=== PATIENT | male | born 1980 | race Caucasian/White ===

== ENCOUNTER 2019-07-05 19:05 | Emergency (ER) | payer OTHER, SELFPAY ==
--- NOTE | 2019-07-05 19:00 | DI.RAD_ITS ---
EXAM: XR ANKLE RT COMPLETE CLINICAL HISTORY: Laceration posterior leg, R/O foreign body TECHNIQUE: COMPARISON: No exams were available for comparison FINDINGS: Three views were obtained. The ankle mortise is well maintained. No bony abnormality seen. No fore ign body identified. IMPRESSION:
[2019-07-05 19:11] VITALS: BP 157/92; PULSE 77; RESP 16; TEMP 36.6; O2SAT 98
--- NOTE | 2019-07-05 19:17 | ED.GENADUL_ITS ---
Discharge Plan Disposition Patient Disposition: HOME Condition: Stable Discharge Details Chief Complaint: Laceration Clinical Impression: Laceration of leg, right ED Provider: Narcisa Harris Discharge Instructions Instructions: Laceration (ED) Additional Instructions: After 12 to 24 hours you may wash wound under running soap and water. No soaking. Only apply bacitracin for the first day or 2. Allow to air dry. Keep clean and dry return for any signs of infection, swelling, red streaks pus or drainage. Increased pain or any concerns. Have sutures removed in 7 to 10 days. You are given a tetanus vaccine at this visit. The anesthesia will wear off in 1 to 2 hours you may take Tylenol or ibuprofen at that time. Medical Decision Making 38-year-old male presents with a right lower extremity laceration. This occurred approximately 30 minutes prior to arrival. Patient states that he was taking out the trash something hit the back of his leg and he noticed a laceration unsure of what object caused the injury. He does have a proximately 5 cm horizontal linear laceration noted with bleeding controlled. He does have full range of motion of his ankle. He is unsure of his tetanus vaccine status. He rates his pain mild to moderate. X-ray of ankle obtained to rule out foreign body. Was within normal limits no metallic or other radiopaque foreign bodies detected. IMPRESSION: Suspected soft tissue injury seen along the posterior margin of the right calf with no metallic or other radiopaque foreign bodies detected within the soft tissues. Laceration repaired as noted in procedure note above. Irrigated with sterile normal saline and 2% chlorhexidine. Anesthesia achieved with lidocaine 1% with epi patient tolerated well. Laceration repaired with number seven 3.0 Prolene simple interrupted sutures. Wound was somewhat approximated. There was some tension noted to the wound so wound edges were not completely brought together. Instructed on home care and to return in 7 to 10 days discussed red flags such as signs of infection or red streaks. Verbalized understanding. Patient was placed on the case management list to establish primary care provider. He was given a tetanus injection at this visit. This text was generated using [employer] system, please disregard any oddities of phrase or misspellings. HPI General Mode of arrival: ambulatory . Date/Time Provider Initiated Documentation: 07/05/19 19:07 . Limitations to Documentation: no limitations . Information obtained by: patient . HPI Narrative: 38-year-old male presents with a right lower extremity laceration. This occurred approximately 30 minutes prior to arrival. Patient states that he was taking out the trash something hit the back of his leg and he noticed a laceration unsure of what object caused the injury. He does have a proximately 5 cm horizontal linear laceration noted with bleeding controlled. He does have full range of motion of his ankle. He is unsure of his tetanus vaccine status. He rates his pain mild to moderate. Review of Systems Narrative: Constitutional: Negative for weight loss, alert and oriented, well groomed, normal body habitus, appears comfortable. Chest: Denies chest pain, palpitations, irregular rhythm, hypertension. Respiratory: Denies Shortness of breath, cough, hemoptysis. GI: Denies abdominal pain, nausea, vomiting, diarrhea, constipation. Integumentary/Breasts Skin/Breast: Reports wounds (Laceration) [facility] Social History Smoking/Tobacco Use Status: Never Drug use: Never Do you feel safe at home: Yes Do you feel safe in your relationship?: Yes Exam Narrative Exam Narrative: Constitutional: Alert and oriented x3. Appears stated age. Normal body habitus. Head: Normocephalic, no trauma. Chest: RRR, Normal S1, S2, distal pulses intact. Resp: Lungs clear to auscultation bilaterally, no wheezes, rales, or rhonchi. Musculoskeletal: Normal gait, 5/5 strength to all four extremities. Skin: Approximately 5 cm horizontal linear laceration noted to the distal posterior leg. Capillary refill less than 2 sec. Neurologic: Cranial nerves II-XII intact. Alert and oriented x 3. DTR's intact. Procedures Laceration Laceration 1: Site: lower extremity Side (If applicable): right Size (cm): 4 Description: linear and clean Depth: simple, single layer Local Anesthetic: Lidocaine 1% and with Epi Amount of anesthesia used (mL): 2 Pre-repair: wound explored, irrigated extensively and deep structures intact Skin layer closed with: nylon Size (cm): 3-0 Number of sutures: 7 Technique: simple, interrupted
--- NOTE | 2019-07-05 19:38 | DI.VRAD_ITS ---
PROCEDURE INFORMATION: Exam: XR Right Ankle Exam date and time: 07/05/2019 7:27 PM Age: 38 years old Clinical indication: Injury or trauma; Initial encounter; Lower leg and ankle; Right; Foreign body involvement not specified; Patient HX: Laceration posterior leg; Additional info: R/O foreign body TECHNIQUE: Imaging protocol: XR Right ankle. Views: 3 or more views. COMPARISON: No relevant prior studies available. FINDINGS: Bones/joints: Normal trabecular architecture is seen throughout the osseous components of the right ankle and no acute fractures or dislocations are identified. Enthesophyte incidentally noted along the inferior margin of the calcaneus at the attachment of the plantar fascia. Articular surfaces and spaces appear preserved. Soft tissues: A subtle focal defect seen along the posterior margin of the right calf on the lateral view 12-13 mm cephalad to the superior margin of the calcaneus could represent laceration or other soft tissue injury. No metallic or other radiopaque foreign bodies are detected within the soft tissues at this location or throughout the remainder of the right ankle. IMPRESSION: Suspected soft tissue injury seen along the posterior margin of the right calf with no metallic or other radiopaque foreign bodies detected within the soft tissues. Dictated and Authenticated by: Martin Gongora MD. Ordering:GUME Brewster MD
--- NOTE | 2019-07-05 20:12 | NUR.NOTE ---
referred to CM to establish PCP 07/05/2019Nursing Note:
[2019-07-05 20:20] VITALS: BP 157/92; PULSE 77; RESP 16; O2SAT 98
--- NOTE | 2019-07-06 10:57 | PDOC.ERCMPRO ---
- If Service Date Differs Date of service: 07/06/19 Time of Service: 10:57 Care Management Progress Note [place] is seen in the ED for a laceration to his right leg. At the request of ED provider, CM coordinates a referral to [facility], as [place] needs to establish care with a PCP and will require a follow-up appointment to his ED visit.
== END 2019-07-05 20:20 | disposition home or self-care (01) ==
PROVIDERS: Emergency Provider Registered Nurse Emergency
DX: S81.811A Laceration without foreign body, right lower leg, initial encounter (principal); W26.9XXA Contact with unspecified sharp object(s), initial encounter
CPT/HCPCS: 12002; 90471; 73610